=== PATIENT | male | born 1995 | race Caucasian/White ===

== ENCOUNTER 2017-11-06 17:24 | Emergency (ER) | payer BC ==
[~2017-11-06] VITALS: Ht 180.3 cm; Wt 79.5 kg
[2017-11-06 17:35] VITALS: TEMP 36.8; Ht 180.3 cm; Wt 79.5 kg
[2017-11-06] MEDS ORDERED: SODIUM CHLORIDE 0.9% 1000ML 1,000 ML IV STA (17:57)
[2017-11-06] MEDS ORDERED: SODIUM CHLORIDE 0.9% 1000ML 1,000 ML IV ONE (17:57)
--- NOTE | 2017-11-06 18:04 | EMERGENCY ROOM VISIT NOTE ---
History Report prepared by Isac: Marcus Pedraza Under the Supervision of: Dr. Fernando Asher M.D. First contact with patient: 17:41 Chief Complaint: URINARY SYMPTOMS Stated Complaint: PAIN,BLOOD IN URINE History of Present Illness The patient is a 22 year old male who presents to the Emergency Room with concerns of inermittent hematuria that he first noticed this morning. The patient states that when he woke up this morning he noticed some "dried" blood on the tip of his penis. Around 1100, 7 hours ago, he did pass some bloody urine. At 1600, 2 hours ago the hematuria worsened acutely. The patient also notes some lower abdominal pain and pain with urination. He denies any penile discharge. He also denies any trauma/falls, chest pain, shortness of breath or history urinary issues. The patient has not history of kidney stones. Source of History: patient, friend Onset: This morning Position: other () Quality: other (hematuria) Timing: intermittent Associated Symptoms: + abdominal pain, No back pain Review of Systems See HPI for pertinent positives & negatives. A total of 10 systems reviewed and were otherwise negative. Past Medical & Surgical Medical Problems: (1) Mononucleosis (2) Strep throat Old medical records were reviewed. Nurse's notes were reviewed and I agree with. Family History Heart disease Social History Smoking Status: Current Every Day Smoker Alcohol Use: occasionally Drug Use: none Marital Status: single Housing Status: lives with roommate Occupation Status: [employer] student Current/Historical Medications Scheduled Cefdinir (Omnicef), 1 CAP PO BID Allergies Coded Allergies: No Known Allergies (Unverified , 12/20/15) Physical Exam Vital Signs Date Time Temp Pulse Resp B/P (MAP) Pulse Ox O2 Delivery O2 Flow Rate FiO2 11/06/17 20:46 97 18 148/69 100 11/06/17 19:56 94 20 136/78 99 Room Air 11/06/17 17:35 36.8 97 20 133/80 98 Room Air Physical Exam General: Non-ill appearing young male in no acute distress. HEENT: Normal cephalic atraumatic. Pupils are equal round and reactive to light. Extraocular movements are intact. Oropharynx is pink with moist mucous membranes. No swelling of the mouth lips or tongue. Neck: Supple with a midline trachea. No meningeal signs or stiffness, no JVD or bruits. No Stridor. Chest: Clear to auscultation bilaterally. No wheezes or rhonchi. No increased work of breathing. Heart: regular rate and rhythm. Abdomen: Soft nontender, nondistended without rebound guarding or rigidity. Extremities: No cyanosis clubbing or edema. No calf tenderness or assymetry Spine/Back. Non tender to palpation. No CVA tenderness Skin: Good turgor without rashes. Neurologic exam: Cranial nerves two through 12 are intact. Motor and sensation are intact and symmetrical throughout. : No penile lesions or discharge, no testicular swelling or redness, no lymphadenopathy. Medical Decision & Procedures ER Provider Diagnostic Interpretation: Radiology results as stated below per my review and radiologist interpretation: ABD/PELVIS WITHOUT FOR STONE CLINICAL HISTORY: Hematuria. Pelvic pain. COMPARISON STUDY: Splenic ultrasound December 20, 2015. FINDINGS: Lung bases are clear. No renal, ureteral or bladder calculi are present. There is slight dilatation of each collecting system as well as both ureters. Mild bladder wall thickening is noted with mild infiltration adjacent to the bladder wall. There is trace fluid within the pelvis. Evaluation of the abdomen and pelvis is suboptimal on this unenhanced exam. The liver, spleen, adrenal glands and pancreas are normal. There is no biliary or pancreatic ductal dilatation. The appendix is normal. No pneumatosis, free air or portal venous gas is present. No suspicious osseous lesion is noted. This study has decreased sensitivity for detection of urothelial lesions given lack of IV contrast. IMPRESSION: 1. No urinary calculi. 2. Mild dilatation of the bilateral collecting systems and ureters. Although nonspecific, this may be related to a bladder abnormality given bladder wall thickening and mild infiltration which favors cystitis. This could be correlated with urinalysis. 3. Trace fluid within the pelvis. Electronically signed by: Prosper Dale M.D. 11/06/2017 7:35 PM Dictated Date/Time: 11/06/2017 7:28 PM Laboratory Results 11/06/17 18:30 Red Blood Count 4.67, Mean Corpuscular Volume 90.8, Mean Corpuscular Hemoglobin 30.0, Mean Corpuscular Hemoglobin Concent 33.0, Mean Platelet Volume 10.0, Neutrophils (%) (Auto) 82.5, Lymphocytes (%) (Auto) 5.8, Monocytes (%) (Auto) 10.9, Eosinophils (%) (Auto) 0.3, Basophils (%) (Auto) 0.2, Neutrophils # (Auto ) 15.57, Lymphocytes # (Auto) 1.09, Monocytes # (Auto) 2.06, Eosinophils # (Auto ) 0.06, Basophils # (Auto) 0.04 11/06/17 18:30 Test 11/06/17 18:30 White Blood Count 18.87 K/uL (4.8-10.8) Red Blood Count 4.67 M/uL (4.7-6.1) Hemoglobin 14.0 g/dL (14.0-18.0) Hematocrit 42.4 % (42-52) Mean Corpuscular Volume 90.8 fL (80-100) Mean Corpuscular Hemoglobin 30.0 pg (25-34) Mean Corpuscular Hemoglobin Concent 33.0 g/dl (32-36) Platelet Count 233 K/uL (130-400) Mean Platelet Volume 10.0 fL (7.4-10.4) Neutrophils (%) (Auto) 82.5 % Lymphocytes (%) (Auto) 5.8 % Monocytes (%) (Auto) 10.9 % Eosinophils (%) (Auto) 0.3 % Basophils (%) (Auto) 0.2 % Neutrophils # (Auto) 15.57 K/uL (1.4-6.5) Lymphocytes # (Auto) 1.09 K/uL (1.2-3.4) Monocytes # (Auto) 2.06 K/uL (0.11-0.59) Eosinophils # (Auto) 0.06 K/uL (0-0.5) Basophils # (Auto) 0.04 K/uL (0-0.2) RDW Standard Deviation 40.8 fL (36.4-46.3) RDW Coefficient of Variation 12.2 % (11.5-14.5) Immature Granulocyte % (Auto) 0.3 % Immature Granulocyte # (Auto) 0.05 K/uL (0.00-0.02) Urine Color ORANGE Urine Appearance CLOUDY (CLEAR) Urine pH 7.0 (4.5-7.5) Urine Specific Peel 1.007 (1.000-1.030) Urine Protein 2+ (NEG) Urine Glucose (UA) NEG (NEG) Urine Ketones NEG (NEG) Urine Occult Blood 3+ (NEG) Urine Nitrite NEG (NEG) Urine Bilirubin NEG (NEG) Urine Urobilinogen NEG (NEG) Urine Leukocyte Esterase LARGE (NEG) Urine WBC (Auto) >30 /hpf (0-5) Urine RBC (Auto) 10-30 /hpf (0-4) Urine Hyaline Casts (Auto) /lpf (0-5) Urine Epithelial Cells (Auto) 0-5 /lpf (0-5) Urine Bacteria (Auto) NEG (NEG) Urine Pathogenic Casts /lpf (0) Anion Gap 10.0 mmol/L (3-11) Est Creatinine Clear Calc Drug Dose 126.9 ml/min Estimated GFR () 127.2 Estimated GFR (Non- 109.8 BUN/Creatinine Ratio 10.4 (10-20) Calcium Level 9.4 mg/dl (8.5-10.1) Total Bilirubin 0.8 mg/dl (0.2-1) Direct Bilirubin 0.2 mg/dl (0-0.2) Aspartate Amino Transf (AST/SGOT) 18 U/L (15-37) Alanine Aminotransferase (ALT/SGPT) 21 U/L (12-78) Alkaline Phosphatase 88 U/L (45-117) Total Creatine Kinase 159 U/L (39-308) Creatine Kinase MB < 1.0 ng/ml (0.5-3.6) Creatine Kinase MB Ratio (0-3.0) Total Protein 8.2 gm/dl (6.4-8.2) Albumin 4.0 gm/dl (3.4-5.0) Lipase 74 U/L (73-393) Laboratory studies as stated above per my review. Medications Administered Medications (Trade) Dose Ordered Sig/Kirt Route Start Time Stop Time Status Last Admin Dose Admin Sodium Chloride 1,000 ml @ 999 mls/hr Q1H1M STAT IV 11/06/17 17:57 11/06/17 18:57 DC 11/06/17 17:57 999 MLS/HR Ceftriaxone Sodium (Rocephin Inj) 1 gm NOW STAT IV 11/06/17 19:37 11/06/17 19:39 DC 11/06/17 19:56 1 GM ED Course 1743: Past medical records reviewed. The patient was evaluated in room B8, and a complete history and physical examination were performed. 1757: Ordered Sodium Chloride 1000 mL @ 150 mL/hr IV, Sodium Chloride 1000 mL @ 999 mL/hr IV. 1936: Ordered Rocephin 1 gm IV. 1955: I discussed the case with Dr. Bethany Clay. He states that he agrees with the treatment plan. He note that the patient may need further work- up in the outpatient setting. 2002: Upon reevaluation, the patient is resting in bed. I discussed the results and treatment plan with him. He verbalized agreement of the treatment plan. The patient was discharged home. Medical Decision Differentials include, but are not limited to; UTI, prostatitis, STD, and kidney stones. This patient comes in as described above he has hematuria he has lower abdominal pain. He thinks he had some fever yesterday he looks well on exam he is in no back pain is been keeping up with his fluids. He is stable vital signs here. His abdomen is mildly tender in suprapubic area. IV access was established and blood work was obtained. he has no penile lesions or discharge. I did do a GC and chlamydia swab. His white count was elevated 18. he did receive IV Rocephin. He is not anemic. His urinalysis does suggest a UTI. CAT scan shows no definite obstructive uropathy or kidney stone but he does have cystitis findings. He looks good and would like to go home I did discuss case with Dr. Glez, the on-call urologist, and he feels that the patient can go home and will need follow-up. I recommended that the patient follow-up with urology. He may need further urologic workup for any structural abnormalities to predispose him to cystitis which is unusual young male. He was encouraged to return if: he has increasing pain or bleeding, fever or chills , worsening of symptoms, any new problems or concerns. He will be sent home on Omnicef 300 mg twice daily for the next 10 days. He was given a prescription. He was happy with the plan and discharged to home. Medication Reconcilliation Current Medication List: was personally reviewed by me Blood Pressure Screening Patient's blood pressure: Elevated blood pressure Blood pressure disposition: Elevated BP felt to be situational Consults Time Called: 1949 Consulting Physician: Dr. Bethany Alicia [facility] Returned Call: 1955 I discussed the case with Dr. Bethany Clay. He states that he agrees with the treatment plan. He note that the patient may need further work-up in the outpatient setting. Impression Primary Impression: Cystitis Additional Impressions: Hematuria UTI (urinary tract infection) Suprapubic pain Scribe Attestation The scribe's documentation has been prepared under my direction and personally reviewed by me in its entirety. I confirm that the note above accurately reflects all work, treatment, procedures, and medical decision making performed by me. Departure Information Dispostion Home / Self-Care Prescriptions Cefdinir (OMNICEF) 300 Mg Cap 1 CAP PO BID for 10 Days, #20 CAP Prov: Fernando Asher M.D. 11/06/17 Referrals [facility] (PCP) Forms HOME CARE DOCUMENTATION FORM, IMPORTANT VISIT INFORMATION Patient Instructions My [facility] Additional Instructions Rest Drink plenty of fluids Use Omnicef 300 mg twice a day 10 days Return if: worsening of symptoms, increasing pain, fever or chills, any new problems or concerns Follow-up with the [facility] or your doctor in the next 1-2 days for recheck Also follow-up with Dr. Glez (urology) this week for recheck Problem Qualifiers
[2017-11-06 18:44] LABS: BASO % 0.2 %; BASO ABS # 0.04 K/uL (0-0.2); EOS % 0.3 %; EOS ABS # 0.06 K/uL (0-0.5); HEMATOCRIT 42.4 % (42-52); IG# 0.05 K/uL (0.00-0.02); LYMPH % 5.8 %; LYMPH ABS # 1.09 K/uL (1.2-3.4); MEAN CELL VOLUME 90.8 fL (80-100); MONO % 10.9 %; MONO ABS # 2.06 K/uL (0.11-0.59); NEUT % 82.5 %; NEUT ABS # 15.57 K/uL (1.4-6.5); PLATELET COUNT 233 K/uL (130-400); RED CELL DISTRIBUTION WIDTH CV 12.2 % (11.5-14.5); RED CELL DISTRIBUTION WIDTH SD 40.8 fL (36.4-46.3); WHITE BLOOD COUNT 18.87 K/uL (4.8-10.8)
[2017-11-06 19:03] LABS: CALCIUM 9.4 mg/dl (8.5-10.1); CREATININE 0.98 mg/dl (0.60-1.40); POTASSIUM 3.8 mmol/L (3.5-5.1); TOTAL PROTEIN 8.2 gm/dl (6.4-8.2)
--- NOTE | 2017-11-06 19:36 | DIAGNOSTIC IMAGING REPORT ---
ABD/PELVIS WITHOUT FOR STONE CLINICAL HISTORY: Hematuria. Pelvic pain. COMPARISON STUDY: Splenic ultrasound December 20, 2015. FINDINGS: Lung bases are clear. No renal, ureteral or bladder calculi are present. There is slight dilatation of each collecting system as well as both ureters. Mild bladder wall thickening is noted with mild infiltration adjacent to the bladder wall. There is trace fluid within the pelvis. Evaluation of the abdomen and pelvis is suboptimal on this unenhanced exam. The liver, spleen, adrenal glands and pancreas are normal. There is no biliary or pancreatic ductal dilatation. The appendix is normal. No pneumatosis, free air or portal venous gas is present. No suspicious osseous lesion is noted. This study has decreased sensitivity for detection of urothelial lesions given lack of IV contrast. IMPRESSION: 1. No urinary calculi. 2. Mild dilatation of the bilateral collecting systems and ureters. Although nonspecific, this may be related to a bladder abnormality given bladder wall thickening and mild infiltration which favors cystitis. This could be correlated with urinalysis. 3. Trace fluid within the pelvis. Electronically signed by: Prosper Dale M.D. 11/06/2017 7:35 PM Dictated Date/Time: 11/06/2017 7:28 PM
[2017-11-06] MEDS ORDERED: CEFTRIAXONE SOD INJ 1 GM ADDVIAL IV STA (19:37)
[2017-11-06 20:09] LABS: CKMB < 1.0 ng/ml (0.5-3.6)
[2017-11-06] MEDS ORDERED: CEFD300C2 PO (20:34)
[2017-11-06 20:46] VITALS: BP 148/69; PULSE 97; O2SAT 100
--- NOTE | 2017-11-08 12:11 | Pharmacy Progress Note ---
ED Pharmacist Culture FollowUp Date of Service: Nov 08, 2017. Patient was sent home with a prescription for Cefdinir 300 mg BID x 10 days, which should cover the E. coli growing from the patient's urine culture.
== END 2017-11-06 20:48 | disposition home or self-care (01) ==
LOC: C.EDB 17:25
DX: N30.91 Cystitis, unspecified with hematuria (principal); N39.0 Urinary tract infection, site not specified; R10.30 Lower abdominal pain, unspecified; F17.200 Nicotine dependence, unspecified, uncomplicated